=== PATIENT | female | born 1990 | race Caucasian/White ===

== ENCOUNTER 2024-12-06 19:19 | Emergency (ER) | payer MEDICAID, SELFPAY ==
[2024-12-06 19:21] VITALS: BMI 26.2
[2024-12-06 19:32] VITALS: BP 145/91; BP 151/99; PULSE 80; TEMP 37; O2SAT 100
--- NOTE | 2024-12-06 19:39 | XR_ITS ---
Examination: CT brain head without contrast. 2-D sagittal coronal reconstructions Date and time of exam:December 06, 20242002 hours Comparison October 22, 2022 INDICATIONS: Hypertension and dizziness. Vision today CTDI: vol (mGy):49.8 DLP: (mGycm):960 Technique: Multiple CT axial sections of the brain have been obtained, 5 mm slice thickness. Contrast has not been administered. 2-D sagittal, coronal reconstructions have been obtained Low dose protocols were performed. One or more of the following dose reduction techniques were used; automated exposure control, adjustment of the mA and/or KV according to patient size, use of iterative reconstruction technique. Findings: No significant ventricular enlargement. Intra-axial or extra-axial hemorrhage density is not seen. No mass effect or midline shift Basal cisterns are not remarkable. Fourth ventricle is midline. Cranial vault intact. Impression: Negative for acute hemorrhage, mass effect or midline shift As clinically warranted, brain MRI follow-up would best assess for demyelinating disease, acute ischemic change
--- NOTE | 2024-12-06 19:39 | EKG_ITS ---
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
--- NOTE | 2024-12-06 19:39 | XR_ITS ---
Examination: PA chest single view TECHNIQUE: Upright PA chest single view Examination time: December 06, 2024 at 2009 hours Comparison December 09, 2022 INDICATIONS: Onset dizziness today FINDINGS: Normal heart size Lungs are clear. Osseous structures are intact. IMPRESSION: No active disease
--- NOTE | 2024-12-06 19:40 | PD.EDRME ---
Rapid Medical Screening Exam RME Arrival date/time: 12/06/24 19:19 34 year old female present to ED for c/o of elevated blood pressure, headache, dizziness and blurry vision I have greeted and performed a focused initial assessment of this patient. A comprehensive ED assessment and evaluation of the patient, analysis of all test results, and completion of the medical decision making process will be conducted by additional ED providers. Chief Complaint: General Adult/Misc Complain Time Seen by Provider: 12/06/24 19:36 Vital signs: Vital Signs Temperature 98.6 F 12/06/24 19:32 Pulse Rate 80 12/06/24 19:32 Blood Pressure 151/99 H 12/06/24 19:32 Pulse Oximetry (%) 100 12/06/24 19:32 Oxygen Delivery Method Room Air 12/06/24 19:32
[2024-12-06 20:35] LABS: Basophils # (Auto) 0.1 Thou/mm3 (0.0-0.2); Basophils % (Auto) 1 % (0-2.5); Eosinophils # (Auto) 0.2 Thou/mm3 (0.0-0.5); Eosinophils % (Auto) 3 % (0-10); Hematocrit 33.5 % (36.0-46.0); Hemoglobin 11.4 g/dL (12.0-16.0); Immature Granulocytes % (Auto) 0 % (0-0); Immature Granulocytes Auto 0.01 Thou/mm3 (0.00-0.00); Lymphocytes # (Auto) 2.5 Thou/mm3 (1.0-4.8); Lymphocytes % (Auto) 44 % (10-50); Mean Corpuscular Hemoglobin 28.7 pg (25.0-35.0); Mean Corpuscular Volume 84 fL (80-100); Monocytes # (Auto) 0.4 Thou/mm3 (0.0-0.8); Monocytes % (Auto) 7 % (0-12); Neutrophils # (Auto) 2.6 Thou/mm3 (1.8-7.7); Neutrophils % (Auto) 46 % (37-80); Nucleated Red Blood Cell % 0 /100 WBC (0); Platelet Count 298 Thou/mm3 (140-440); Red Blood Count 3.97 Miln/mm3 (4.00-5.20); White Blood Count 5.7 Thou/mm3 (3.6-11.0)
[2024-12-06 20:48] LABS: HCG,Qualitative Serum Negative
[2024-12-06 20:52] LABS: Alanine Aminotransferase 10 U/L (10-49); Albumin, Serum 4.9 gm/dL (3.5-5.0); Albumin/Globulin Ratio 1.6 (1.2-2.2); Alkaline Phosphatase 61 U/L (46-116); Anion Gap 10 (7-16); Aspartate Amino Transferase 28 U/L (0-34); BUN/Creatinine Ratio 15 Ratio (12-20); Bilirubin,Total 0.3 mg/dL (0.3-1.2); Blood Urea Nitrogen 12 mg/dL (9-23); Calcium 10.4 mg/dL (8.3-10.6); Calcium (Corrected) 10.4 mg/dL (8.5-10.1); Carbon Dioxide 26.1 mMol/L (20.0-31.0); Chloride 104 mMol/L (98-107); Creatinine (Component) 0.8 mg/dL (0.6-1.3); Estimated Creatinine Clearance 107.2 mL/min (>60); Globulin 3.1 gm/dL (2.3-3.5); Glucose 88 mg/dL (74-106); Osmolality,Calculated 278 (275-295); Potassium 4.7 mMol/L (3.4-5.1); Sodium 140 mMol/L (136-145); Troponin I < 0.002 ng/mL (0.0-0.045); eGFR > 60 See Note
[2024-12-06 23:39] VITALS: BP 136/87; PULSE 67; RESP 18; TEMP 36.8; O2SAT 100
--- NOTE | 2024-12-06 23:46 | PD.EDADULT ---
ED General RME/HPI General Chief complaint: General Adult/Misc Complain Stated complaint: HTN, dizziness,headache sent by pcp Time Seen by Provider: 12/06/24 19:36 Arrival date/time: 12/06/24 19:19 34 year old female present to emergency room with c/o of ongoing elevated blood pressure since last friday. pt report had intermittent similar symptoms since she was 23 years old. pt report never been offically diagnosed with HTN. pt does not have a PCP and wants a referral. SEVERITY: Symptoms are described as being severe with limitations on activities of daily living CONTEXT: The patient is unable to identify any inciting events. DURATION/TIMING: The symptoms started approximately 7 days ago and have been constant since and have been progressive getting worse. ASSOCIATED SYMPTOMS: blurry vision, dizziness, headache MODIFYING FACTORS: The patient is unable to identify any alleviating or aggravating symptoms. PERTINENT ROS: no fevers, no cough, no pleuritic pain, no ripping or tearing sensations, denies any lower extremity edema and no unilateral swelling, no chest pain/shortness of breath no nausea,vomiting, diarrhea, no rash no loc/syncope episode no abd/back pain REVIEW OF SYSTEMS: See History of Present Illness - with the exception of those mentioned in the history of present illness, all other systems reviewed and reported as negative GENERAL: In general the patient is awake, interactive, in an emergency department gurney. HEAD/EYES/EARS/NOSE/THROAT: normo-cephalic, atraumatic, mucus membranes are moist, anicteric, palpebral conjunctiva is pink, trachea is midline. CARDIOVASCULAR: regular rate and regular rhythm, no murmurs, heart sounds are not distant, strong pulses in all four extremities that are equal and symmetric bilateral upper and lower extremities, normal capillary refill. CHEST/PULMONARY: normal chest rise and fall, good air movement, clear to auscultation bilaterally, normal inspiratory to expiratory ratios without evidence of respiratory distress. NECK: No midline/Paraspinal tenderness, no step off ROM/Strenght intact No Kernig and bruzinski sign. No trauma ABDOMEN: soft, not tender, no masses appreciated BACK: normal range of motion without pain. NEUROLOGICAL: cranio-facial features are symmetric, moves all four extremities equally without obvious limitations or weakness. EXTREMITY: no tenderness to palpation over the long bones or large joints of the bilateral upper and lower extremities, no joint swelling, no joint erythema, no signs of trauma, no unilateral leg swelling and no peripheral edema. SKIN: warm, dry, well-perfused, no jaundice, no rash, no telangiectasias or petechia. PSYCH: calm, cooperative, no evidence of psychosis or agitation RME / HPI RME / HPI narrative: 12/06/24 19:19 34 year old female present to ED for c/o of elevated blood pressure, headache, dizziness and blurry vision I have greeted and performed a focused initial assessment of this patient. A comprehensive ED assessment and evaluation of the patient, analysis of all test results, and completion of the medical decision making process will be conducted by additional ED providers. Related Data Home Medications ?Medication ?Instructions ?Recorded ?Confirmed docusate sodium 100 mg capsule 100 mg PO BID 01/29/18 01/29/18 escitalopram oxalate 10 mg tablet 10 mg PO QDAY 01/29/18 01/29/18 zolpidem 10 mg tablet 10 mg PO HS PRN Insomnia 01/29/18 01/29/18 Previous Rx's ?Medication ?Instructions ?Recorded albuterol sulfate 90 mcg/actuation 2 puff inhalation QID PRN 12/10/22 aerosol inhaler (Ventolin HFA) shortness of breath or wheezing #8.5 grams montelukast 10 mg tablet 10 mg PO QPM #30 tabs 12/10/22 ibuprofen 800 mg tablet 800 mg PO TID PRN pain #30 tabs 05/21/23 lisinopril 2.5 mg tablet 2.5 mg PO QDAY #30 tabs 12/06/24 Allergies Allergy/AdvReac Type Severity Reaction Status Date / Time amoxicillin Allergy Intermediate Rash Verified 12/06/24 19:27 Course Course Course Narrative: CT, basic labs, EKG, Trop , Cxr Patient presenting for evaluation of systematic hypertension.? On exam and through history there was no evidence of hypertensive emergency or urgency.? Patient without? decreased urinary output,? chest pain, or abnormal symptoms for patient.? At this time, most likely diagnosis is essential hypertension without evidence of hypertensive urgency/emergency.? labs, cxr, ekg and CT unremarkable. pt is stable for continue outpatient evaluation/treatment. pt request to start on low dose blood pressure medication.? Discussed patient's elevated blood pressure and potential contributing factors. Discussed alcohol and sedentary lifestyle has modifiable risk factors for high blood pressure.? home monitor Rx: lisinpril 2.5mg and referral to local PCP? Instructed to keep blood pressure diary and follow up. Return to emergency department urgently if new or worsening symptoms develop. Quality Measures none Orders Category Date Time Status EKG (ED ONLY) *Do not use* NOW Care 12/06/24 19:[address] head/brain wo con Stat Exams 12/06/24 19:39 Completed EKG (ED Only) Stat Exams 12/06/24 19:39 Draft XR chest 1V portable Stat Exams 12/06/24 19:39 Completed CBC Stat Lab 12/06/24 20:18 Completed CMP [Comprehensive Metabolic Panel] Stat Lab 12/06/24 20:18 Completed HCG,Qualitative Serum Stat Lab 12/06/24 20:18 Completed Troponin I Stat Lab 12/06/24 20:18 Completed Reevaluation(s) Reevaluation #1: pt is feeling better and comfortable to go home Vital Signs Vital signs: Vital Signs Temperature 98.6 F 12/06/24 19:32 Pulse Rate 80 12/06/24 19:32 Blood Pressure 151/99 H 12/06/24 19:32 Pulse Oximetry (%) 100 12/06/24 19:32 Oxygen Delivery Method Room Air 12/06/24 19:32 Procedures -ED EKG Interpretation #1: Date of EK12/06/24 Rate: 87 Interpretation: Reviewed by me EKG Impression: Normal sinus rhythm, No acute ST-T changes, No ectopy, No ischemic changes and Normal QRS MDM Patient data External records reviewed:: [facility] previous records Clinical information provided by:: patient Social determinants that could affect healthcare access:: none Patient has the following chronic illnesses:: as stated in chart How is presenting disease/condition affected by chronic disease/condition?: uneffected by Evaluation data The following diagnostics were reviewed and interpreted by me:: lab results, radiology exam(s) and EKG tracing(s) Lab and/or radiology exams considered but not ordered:: n/a Interpretation Summary: labs, ct, and cxr wnl/no acute finding Medications Medications considered but not ordered:: n/a Medication administrations:: n/a Consultations Consultation(s) initiated? (list below): No Diagnosis Differential Diagnosis ED Complaint MDM: kidney injury, bleed, dehydration, mi/nstemi, hypertension emergency Most likely diagnosis given after review of the tests above:: htn Admission Indicated Admission indicated?: not indicated Explain why admission is indicated or not indicated:: n/a Admission Request Was there a request for admission?: No Disposition Plan Disposition Plan: Discharge Discharge Attestation Discharge Attestation: The patient and all family members were given an opportunity to ask questions and understood the discharge instructions. Discharge instructions specifically effects, indications for sooner follow up or return to the emergency department, and the expected course of current diagnosis. Patient condition: Stable Medical Decision Making Differential Diagnosis Differential Diagnosis: kidney injury, bleed, dehydration, mi/nstemi, hypertension emergency Lab Data 12/06/24 20:18 12/06/24 20:18 Labs: Lab Results 12/06/24 Range/Units 20:18 WBC 5.7 (3.6-11.0) Thou/mm3 RBC 3.97 L (4.00-5.20) Miln/mm3 Hgb 11.4 L (12.0-16.0) g/dL Hct 33.5 L (36.0-46.0) % MCV 84 (80-100) fL MCH 28.7 (25.0-35.0) pg MCHC 34.0 (31.0-37.0) g/dl RDW Std Deviation 40.0 (36.4-46.3) fL Plt Count 298 (140-440) Thou/mm3 Neut % (Auto) 46 (37-80) % Lymph % (Auto) 44 (10-50) % Mccreary % (Auto) 7 (0-12) % Eos % (Auto) 3 (0-10) % Baso % (Auto) 1 (0-2.5) % Neut # (Auto) 2.6 (1.8-7.7) Thou/mm3 Lymph # (Auto) 2.5 (1.0-4.8) Thou/mm3 Mccreary # (Auto) 0.4 (0.0-0.8) Thou/mm3 Eos # (Auto) 0.2 (0.0-0.5) Thou/mm3 Baso # (Auto) 0.1 (0.0-0.2) Thou/mm3 Immature Gran # (Auto) 0.01 H (0.00-0.00) Thou/mm3 Absolute Nucleated RBC 0.00 (0.00-0.00) Thou/mm3 Immature Gran % 0 (0-0) % Nucleated RBC % 0 (0) /100 WBC Sodium 140 (136-145) mMol/L Potassium 4.7 (3.4-5.1) mMol/L Chloride 104 (98-107) mMol/L Carbon Dioxide 26.1 (20.0-31.0) mMol/L Anion Gap 10 (7-16) BUN 12 (9-23) mg/dL Creatinine 0.8 (0.6-1.3) mg/dL Estim Creat Clear Calc 107.2 (>60) mL/min eGFR > 60 (60 - ) See Note BUN/Creatinine Ratio 15 (12-20) Ratio Glucose 88 (74-106) mg/dL Calculated Osmolality 278 (275-295) Calcium 10.4 (8.3-10.6) mg/dL Corrected Calcium 10.4 H (8.5-10.1) mg/dL Total Bilirubin 0.3 (0.3-1.2) mg/dL AST 28 (0-34) U/L ALT 10 (10-49) U/L Alkaline Phosphatase 61 (46-116) U/L Troponin I < 0.002 (0.0-0.045) ng/mL Total Protein 8.0 (5.7-8.2) gm/dL Albumin 4.9 (3.5-5.0) gm/dL Globulin 3.1 (2.3-3.5) gm/dL Albumin/Globulin Ratio 1.6 (1.2-2.2) HCG, Qual Negative Discharge Plan Plan Patient Disposition: HOME (Self Care) Prescriptions/Referrals Prescriptions/Med Rec: New lisinopril 2.5 mg tablet 2.5 mg PO QDAY Qty: 30 1RF No Action docusate sodium 100 mg capsule 100 mg PO BID Patient Comments: TAKE ONE CAPSULE BY MOUTH TWICE DAILY FOR CONSTIPATION zolpidem 10 mg tablet 10 mg PO HS PRN (Reason: Insomnia) escitalopram oxalate 10 mg tablet 10 mg PO QDAY Patient Comments: TAKE ONE TABLET BY MOUTH EVERY DAY montelukast 10 mg tablet 10 mg PO QPM Qty: 30 0RF albuterol sulfate [Ventolin HFA] 90 mcg/actuation HFA aerosol inhaler 2 puff inhalation QID PRN (Reason: shortness of breath or wheezing) Qty: 8.5 0RF ibuprofen 800 mg tablet 800 mg PO TID PRN (Reason: pain) Qty: 30 0RF [facility] In 1 week No Primary/Family,Physician [Primary Care Provider] - In 1 week Guy ([facility])Tatum FNP [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
== END 2024-12-07 00:03 | disposition home or self-care (01) ==
PROVIDERS: Physician Assistant; Emergency Provider Emergency Medicine
DX: R03.0 Elevated blood-pressure reading, without diagnosis of hypertension (principal); R42 Dizziness and giddiness; R94.31 Abnormal electrocardiogram [ECG] [EKG]
CPT/HCPCS: 36415; 70450; 71045; 80053; 84484; 84703; 85025; 93005; 99284